=== PATIENT | male | born 1980 | race Caucasian/White ===

== ENCOUNTER 2017-09-08 16:47 | Emergency (ER) | payer OTHER ==
[~2017-09-08] VITALS: Ht 177.8 cm; Wt 97.5 kg
[~2017-09-08 16:47] MED LIST: AMOXICILLIN 50500 MG PO; APAP/CODEINE ELI5 M1 OR; AUGMENTIN 875-1 EACH PO; AZITHROMYCIN 2250 MG PO; IBUPROFEN 800800 MG PO; NORCO 5-325 TA1 EACH PO; PREDNISONE 10 M10 MG PO; PREDNISONE 20 M20 MG PO; PROAIR HFA8.5 GM PO
== END 2017-09-08 18:20 | disposition home or self-care (01) ==
LOC: ER 16:47
DX: S61.512A Laceration without foreign body of left wrist, initial encounter (principal); W26.8XXA Contact with other sharp object(s), not elsewhere classified, initial encounter; Y93.89 Activity, other specified; Y92.098 Other place in other non-institutional residence as the place of occurrence of the external cause; Y99.8 Other external cause status

== ENCOUNTER 2019-07-17 11:45 | Inpatient (IN) | payer OTHER ==
[~2019-07-17] VITALS: Ht 180.3 cm; Wt 88.5 kg
[2019-07-17 11:48] VITALS: BP 130/73
[2019-07-17 12:50] LABS: HEMATOCRIT 44.6 % (42.0-52.0); HEMOGLOBIN 14.5 gm/dL (14.0-18.0); MCH 28.8 pg (26.0-34.0); MCHC 32.4 g/dL (28.0-37.0); MCV 88.7 fL (80.0-100.0); PLATELET COUNT 293 thou/uL (150-400); RBC 5.03 mil/uL (4.50-6.00); RDW 13.6 % (10.5-14.5); WBC 23.1 thou/uL (4.0-11.0)
[2019-07-17 12:57] LABS: CALCIUM 9.1 mg/dL (8.5-10.1); CREATININE 1.2 mg/dL (0.7-1.3)
[2019-07-17 13:03] LABS: ALBUMIN 3.8 g/dL (3.4-5.0); TOTAL BILIRUBIN 0.9 mg/dL (<0.1-1.0); TOTAL PROTEIN 7.4 g/dL (6.4-8.2)
[2019-07-17 13:08] LABS: URINE BILIRUBIN NEGATIVE (Negative); URINE BLOOD NEGATIVE (Negative); URINE CLARITY CLEAR; URINE COLOR YELLOW; URINE GLUCOSE-RANDOM* 1+ (Negative); URINE KETONES TRACE (Negative); URINE LEUKOCYTES-REFLEX TRACE (Negative); URINE NITRITE-REFLEX NEGATIVE (Negative); URINE PROTEIN (DIPSTICK) NEGATIVE (Negative); URINE SPECIFIC GRAVITY >= 1.030 (1.005-1.035); URINE UROBILINOGEN 0.2 E.U./dl (0.2-1.0)
[2019-07-17 13:22] LABS: AMP/METHAMP POSITIVE (Negative); BARBITURATES Negative (Negative); BENZODIAZEPINES Negative (Negative); COCAINE Negative (Negative); METHADONE Negative (Negative); OPIATES Negative (Negative); PCP Negative (Negative)
[2019-07-17 13:25] LABS: ABSOLUTE NEUTROPHILS 19.9 thou/uL (1.4-8.2)
[2019-07-17 14:54] VITALS: BP 130/73
--- NOTE | 2019-07-17 18:18 | NUR ---
Assumed Pt care transfer from ED and received report from CALLI Nelson. Assessment and admission completed. Paged DR. Collazo for Orders regarding Diet and Labs.
[2019-07-17 20:02] VITALS: BP 154/79
--- NOTE | 2019-07-18 03:59 | NUR ---
Pt. has been lethargic most of the shift, but will arouse to verbal stimuli. He is oriented to self,place and situation. Po tylenol given for temperature (see emar). Zofran given for c/o nausea (see emar) with some relief. Bed alarm is on.
[2019-07-18 04:45] VITALS: BP 125/64
[2019-07-18 05:28] LABS: HEMATOCRIT 46.1 % (42.0-52.0); HEMOGLOBIN 15.1 gm/dL (14.0-18.0); MCH 29.8 pg (26.0-34.0); MCHC 32.8 g/dL (28.0-37.0); MCV 91.1 fL (80.0-100.0); RBC 5.06 mil/uL (4.50-6.00); RDW 13.6 % (10.5-14.5); WBC 17.2 thou/uL (4.0-11.0)
[2019-07-18 05:50] LABS: CALCIUM 8.6 mg/dL (8.5-10.1); CREATININE 1.1 mg/dL (0.7-1.3); POTASSIUM 4.3 mmol/L (3.5-5.1)
[2019-07-18 08:21] VITALS: BP 118/77
--- NOTE | 2019-07-18 13:25 | NUR ---
Nutrition: Assessing due to admitting diagnosis of sepsis, cellulitis dermatitis. Per H&P presented with leg swelling and pain. Hx substance abuse. EMR notes pt is homeless, poor historian. Visited over lunch hour. Pt was sound asleep and wound not awaken to loud calling of name. Reviewed breakfast tray in room. Noted nearly 100% consumed, w/ exception of oatmeal. Completed all of scrambled eggs and 1.5 milk cartons for minimum of 24 g protein, not counting other unknown items finished off plate. Lunch untouched d/t lethargy. No weight hx to review per last 4 yrs and no other meals yet recorded. Pt at a safe wt with BMI 27.2 kg/m2. Seems to be consuming adequate po intake and sufficient protein when awake enough for meals. No interventions indicated at this time, will keep as low nutrition risk for now and follow for any decline.
--- NOTE | 2019-07-18 14:06 | NUR ---
CM ATTEMPTED TO ASSESS PT NUMEROUS TIMES THIS DAY. PT WAS MINIMALLY RESPONSIVE/PARTICIPATORY WITH ASSESSMENT. PT INDICATED HE HAD BEEN LIVING HERE AND THERE GOING FROM ONE PERSON'S HOUSE TO ANOTHER. CM ASKED WHERE PT ANTIPATED GOING UPON DC FROM HOSPITAL AND HE INDICATED HE PLANS TO GO TO HIS MOTHER'S HOUSE. PT DIDN'T RESPOND WHEN ASKED ABOUT IF HE HAD A PCP. CM TO PUT INFO FOR FOLLOW UP CARES IN DISCHARGE INSTRUCTIONS. SHOULD PT NEED TRANSPORT UPON DC A VOUCHER CAN BE PROVIDED THROUGH [facility].
[2019-07-18 14:11] VITALS: BP 118/77
[2019-07-18 16:00] VITALS: BP 127/80
[2019-07-18 19:06] LABS: SYPHILIS AB Non Reactive (Non Reactive)
--- NOTE | 2019-07-18 19:41 | NUR ---
Assumed pt care this am, pt has been lethargic for most of the shift but would get up to have his meals. Would wake up when spoken to. No signs or verbalizations of distress have been noted. Pt requested that he not be waken during his sleep. Redness on the left leg is still present. POC followed, endorseds to the night nurse.
[2019-07-18 19:54] VITALS: BP 132/76
[2019-07-19 08:09] LABS: HEMATOCRIT 43.9 % (42.0-52.0); HEMOGLOBIN 14.1 gm/dL (14.0-18.0); MCH 28.9 pg (26.0-34.0); MCV 90.2 fL (80.0-100.0); RBC 4.87 mil/uL (4.50-6.00); RDW 13.9 % (10.5-14.5); WBC 12.8 thou/uL (4.0-11.0)
[2019-07-19 08:11] VITALS: BP 102/66
[2019-07-19 08:11] LABS: CALCIUM 8.7 mg/dL (8.5-10.1); CREATININE 1.3 mg/dL (0.7-1.3); MAGNESIUM 1.7 mg/dL (1.8-2.4)
[2019-07-19] MEDS ORDERED: BACTRIM DS TAB1 EACH PO (10:04)
--- NOTE | 2019-07-19 10:46 | NUR ---
RECEIVED IN BED SLEEPING. AXOX3. CONTACT [facility] MAINTAINED. PT REQUESTED TO D/C HOME WITH MOM. AT BEDSIDE. OK TO D/C HOME WITH PRECRIPTION. MOM [id number] ON HER WAY. IV D/Chris. PRECRIPTION FOR BACTRIM GIVEN TO PT AT BEDSIDE WELL THE D/C INSTRUCTIONS. NO S/S ACUTE DISTRESS NOTED OR REPORTED AT THIS TIME. INSTRUCTED TO CALL WHEN RIDE ARRIVES.
== END 2019-07-19 11:12 | disposition home or self-care (01) | DRG 872 ==
LOC: ER 11:45 → EROBS 13:51 → 4W 16:02
PROVIDERS: Internal Medicine; Physician Assistant; ADMIT Hospitalist
DX: A41.9 Sepsis, unspecified organism (principal); L03.116 Cellulitis of left lower limb; L30.9 Dermatitis, unspecified; F17.210 Nicotine dependence, cigarettes, uncomplicated; L73.9 Follicular disorder, unspecified; F19.90 Other psychoactive substance use, unspecified, uncomplicated; F15.10 Other stimulant abuse, uncomplicated; Z86.14 Personal history of Methicillin resistant Staphylococcus aureus infection; Z79.899 Other long term (current) drug therapy
CPT/HCPCS: 10040

== ENCOUNTER 2021-05-17 13:49 | Emergency (ER) | payer OTHER ==
[~2021-05-17] VITALS: Ht 180.3 cm; Wt 99.8 kg
[~2021-05-17 13:49] MED LIST changes: +BACTRIM DS TAB1 EACH PO
[2021-05-17 13:58] VITALS: BP 147/86
== END 2021-05-17 15:34 | disposition home or self-care (01) ==
LOC: ER 13:49
PROVIDERS: Nurse Practitioner
DX: U07.1 COVID-19 (principal); F17.210 Nicotine dependence, cigarettes, uncomplicated